=== PATIENT | female | born 1975 ===

== ENCOUNTER 2018-09-22 15:53 | Emergency (ER) | payer SELFPAY ==
[~2018-09-22] VITALS: Ht 154.9 cm; Wt 61.6 kg
[2018-09-22 16:43] LABS: BASOPHILS # (AUTO) 0.08 x10^3/uL (0-0.1); BASOPHILS % (AUTO) 1 % (0-1); EOSINOPHILS # (AUTO) 0.19 x10^3/uL (0-0.4); EOSINOPHILS % (AUTO) 2 % (1-7); LYMPHOCYTES # (AUTO) 3.68 x10^3/uL (1-3.4); LYMPHOCYTES % (AUTO) 38 % (22-44); MD NO; MEAN CORPUSCULAR HEMOGLOBIN 28.9 pg (27.0-34.8); MEAN CORPUSCULAR HGB CONC 32.7 g/dL (32.4-35.8); MEAN CORPUSCULAR VOLUME 88.4 fL (80-100); MEAN PLATELET VOLUME 8.1 fL (7.4-10.4); MONOCYTES # (AUTO) 0.59 x10^3/uL (0.2-0.8); MONOCYTES % (AUTO) 6 % (2-9); NEUTROPHILS # (AUTO) 5.25 x10^3/uL (1.8-6.8); NEUTROPHILS % (AUTO) 54 % (42-75); PLATELET COUNT 341 x10^3/uL (130-400); RED BLOOD COUNT 4.15 x10^6/uL (3.82-5.3); RED CELL DISTRIBUTION WIDTH 14.3 % (9.6-15.2)
[2018-09-22 16:51] LABS: ALANINE AMINOTRANSFERASE 214 U/L (12-78); ALBUMIN 3.4 g/dL (3.4-5.0); ANION GAP 6 mmol/L (5-15); CALCIUM 8.2 mg/dL (8.5-10.1); CHLORIDE 108 mmol/L (98-107); CREATININE 0.92 mg/dL (0.55-1.02)
[2018-09-22 17:02] LABS: ALKALINE PHOSPHATASE 103 U/L (45-117); BILIRUBIN,TOTAL 0.5 mg/dL (0.2-1.0); TOTAL PROTEIN 7.5 g/dL (6.4-8.2)
--- NOTE | 2018-09-22 18:15 | NUR ---
PT TO ROOM FROM LOBBY
--- NOTE | 2018-09-22 18:32 | NUR ---
pt to ed for increasing left sided abd pain and cramping, worse with bloating after meals x10 days. connected to monitors. vss. edmd to bedsdie for assessment. awaiting orders.
[2018-09-22] MEDS ORDERED: MAALOX/HYOSCYAMINE/LIDOCAINE 45 ML BTL ONE (18:44)
[2018-09-22 18:47] LABS: MICROSCOPIC NOT IND
[2018-09-22 18:49] LABS: CULTURE INDICATED? NO
[2018-09-22] MEDS ORDERED: MAALOX/HYOSCYAMINE/LIDOCAINE 45 ML BTL PO ONE (19:00)
--- NOTE | 2018-09-22 19:09 | NUR ---
all results back at this time. chart up for recheck.
--- NOTE | 2018-09-22 19:35 | NUR ---
edmd to bedside to upfate on poc. awaiting dispo.
[2018-09-22 20:10] VITALS: BP 108/58
--- NOTE | 2018-09-22 20:10 | NUR ---
Break RN: re-evaluation done. patient discharged with prescriptions and instruction. verbalized understanding.
== END 2018-09-22 21:12 | disposition home or self-care (01) ==
LOC: ED 20:06
DX: K29.00 Acute gastritis without bleeding (principal); Z98.51 Tubal ligation status
CPT/HCPCS: 36415; 74022; 80053; 81003; 83690; 84703; 85025; 99284